=== PATIENT | female | born 1970 | race Caucasian/White ===

== ENCOUNTER → 2017-09-06 | Outpatient (CLI) | payer BC ==
[2017-09-06 15:15] VITALS: BP 157/81; PULSE 101; RESP 15; TEMP 97.9; BMI 37.3
--- NOTE | 2017-09-06 15:21 | P.HPBAR ---
Bariatric H&P - History & Physicial H&P Date: 09/06/17 History & Physicial: Visit/CC: band adjustment/dysphagia with solids and now liquids Patient initial contact: Initial weight: 94.971 kg Initial weight in pounds: 209.38 Height: 5 ft 4.25 in Initial BMI: 35.6 Last weight: Current weight: 99.337 kg Current weight in pounds: 219.00 Current BMI: 37.3 [place] body weight (based on NIH guidelines): 54.998 kg Excess body weight loss: The patient is a 46 year-old F who presents for Bariatric Assessment. Patient presents today for lab band follow up. She has some complaints of some mild dysphagia. She's not been seen in several years. Past Medical History Past Medical History: GERD/Reflux Additional Past Medical History / Comment(s): type 2 DM prior to lap band. History of Any Multi-Drug Resistant Organisms: None Reported Past Surgical History: Bariatric Surgery, Cholecystectomy, Tubal Ligation, Uterine Ablation Additional Past Surgical History / Comment(s): Lap band 2005, repair of LB prolapse 2010 Past Anesthesia/Blood Transfusion Reactions: No Reported Reaction, Motion Sickness Additional Past Anesthesia/Blood Transfusion Reaction / Comm: No tranfusion to date. "Horrific" motion sickness Past Psychological History: No Psychological Hx Reported Smoking Status: Former smoker Past Alcohol Use History: Rare Additional Past Alcohol Use History / Comment(s): On and Off for 25 years, Quit 2013 Past Drug Use History: None Reported - Past Family History Father Additional Family Medical History / Comment(s): congenital heart problems, pacemaker Mother Family Medical History: Cancer Additional Family Medical History / Comment(s): psych issues, cervical cancer Surgical - Exam Vital Signs Temp Pulse Resp BP 97.9 F 101 H 15 157/81 09/06/17 14:44 09/06/17 14:44 09/06/17 14:44 09/06/17 14:44 - General well developed, no distress - Eyes PERRL - Abdomen Abdomen: soft, non tender Bariatric Assessment & Plan Plan: the patient's lap band was adjusted. 2 mL was removed from her band. She currently has 0 mL in the band. She'll follow-up in 4 weeks. Bariatric Checklist Checklist: Plan: Checklist: EGD: 1. Hiatal hernia: 2. H. Pylori: HgbA1c: Vitamin D: Smoking: Former smoker Primary care physician referral: Psychiatry clearance: Cardiology clearance: Sleep study: Diet journal: VTE risk score: VTE risk level: Rehab needs at discharge:
--- NOTE | 2017-09-06 15:53 | P.PN ---
Progress Note - Text Progress Note Date: 09/06/17 The patient had an esophagram performed. There is evidence of rotation of her LAP-BAND suggestive of a prolapse. Dilantin discussion patient regarding gastric prolapse. The patient states that she's been dissatisfied with her band and is considering conversion sleeve gastrectomy. I went over the risks and benefits of procedure. The patient will be scheduled for EGD.
--- NOTE | 2017-09-06 16:37 | FL ---
SINGLE CONTRAST ESOPHAGRAM: CLINICAL HISTORY: 46-year-old female with intermittent dysphagia for a week. Unable to eat. Patient h ad fluid removed in the office today. TECHNIQUE: Single contrast exam performed with thin barium. Total fluoroscopy time: 1 minute 31 seconds. Total images: 29. COMPARISON: 07/01/2010 FINDINGS: The patient's maintenance coordinator image shows circular appearance of the lap band which is different as compared to 07/01/2010. The patient swallowed oral contrast without difficulty or delay. There is only mild hesitancy in passage of contrast across the lap band. Contrast collects in the bod y of the stomach and due to the tortuous course of the stomach, there is a second delay in passage in to the distal stomach and proximal small bowel. Esophageal peristalsis and motility are within normal limits. IMPRESSION: 1. Unusual orientation of the lap band. It is seen as a [place] on the maintenance coordinator image. This is a change a s compared to the patient's postoperative 07/01/2010 appearance. Correlate for the possibility of slip page of the lap band. 2. After emptying the fluid, there is only minimal hesitancy first at the GE junction and then at the level of the mid stomach due to tortuous course of the stomach. No obstruction is seen.
== END | disposition home or self-care (01) ==
LOC: BARWHC3 14:26
PROVIDERS: ATTEND Surgery
DX: Z48.815 Encounter for surgical aftercare following surgery on the digestive system (principal); Z98.84 Bariatric surgery status; Z87.891 Personal history of nicotine dependence
CPT/HCPCS: 74220; 99213

== ENCOUNTER 2017-09-08 08:45 | Day surgery (SDC) | payer BC ==
[2017-09-07 13:17] VITALS: BMI 37.8
[~2017-09-08 08:45] MED LIST: LACTATED RINGERS 1,000 ML IV SCH; LIDOCAINE 1% 20 ML VIAL (10MG/ML) FOR IV START INTRADERMA PRN
[2017-09-08 09:54] VITALS: TEMP 98
[2017-09-08] MEDS ORDERED: PROPOFOL 10 MG/ML 20 ML VIAL IV ONE (10:16)
--- NOTE | 2017-09-08 10:17 | P.GSHP ---
History of Present Illness H&P Date: 09/08/17 Chief Complaint: GERD, dysphagia This is a 46-year-old female who has history of LAP-BAND surgery. Patient presents today for EGD. Her recent esophagram shows gastric prolapse with a 180 rotation of her band. Past Medical History Past Medical History: Diabetes Mellitus, GERD/Reflux Additional Past Medical History / Comment(s): type 2 DM-no longer takes meds for , recent worsening dysphagia History of Any Multi-Drug Resistant Organisms: None Reported Past Surgical History: Bariatric Surgery, Cholecystectomy, Tubal Ligation, Uterine Ablation Additional Past Surgical History / Comment(s): Lap band 2005, repair of LB prolapse 2010 Past Anesthesia/Blood Transfusion Reactions: No Reported Reaction, Motion Sickness Additional Past Anesthesia/Blood Transfusion Reaction / Comment(s): No tranfusion to date, father gets severe PONV, pt. gets. "Horrific" motion sickness Smoking Status: Former smoker - Past Family History Father Additional Family Medical History / Comment(s): congenital heart problems, pacemaker Mother Family Medical History: Cancer Additional Family Medical History / Comment(s): psych issues, cervical cancer Medications and Allergies Home Medications Medication Instructions Recorded Confirmed Type Loratadine [Claritin] 10 mg PO DAILY PRN 02/28/14 09/08/17 History Pseudoephedrine HCl [Sudafed] 30 mg PO Q4HR PRN 02/28/14 09/08/17 History busPIRone HCl [Buspar] 20 mg PO HS 02/28/14 09/08/17 History Multivitamins, Thera [Multivitamin] 1 each PO DAILY 05/30/14 09/08/17 History Rizatriptan Benzoate [Maxalt UNDERLINER] 10 mg PO Q6H PRN 09/06/17 09/08/17 History Mometasone Furoate [Nasonex Nasal 1 - 2 spray EA NOSTRIL DAILY 09/08/17 History [place]] Allergies Allergy/AdvReac Type Severity Reaction Status Date / Time environmental Allergy Unknown Uncoded 09/08/17 09:59 Surgical - Exam Vital Signs Temp Pulse Resp BP Pulse Ox 98.0 F 78 16 120/72 98 09/08/17 09:52 09/08/17 09:52 09/08/17 09:52 09/08/17 09:52 09/08/17 09:52 - General well developed, no distress - Eyes PERRL - ENT normal pinna - Neck no masses - Respiratory normal expansion - Cardiovascular Rhythm: regular - Abdomen Abdomen: soft, non tender Assessment and Plan Assessment: GERD, dysphagia, gastric prolapse. Patient will undergo EGD.
--- NOTE | 2017-09-08 10:23 | P.OP ---
Date of Procedure: 09/08/17 Preoperative Diagnosis: GERD Dysphagia Postoperative Diagnosis: Antral gastritis Gastric prolapse of LAP-BAND device Procedure(s) Performed: EGD Anesthesia: MAC Surgeon: Mina Killian Pathology: other (Antrum) Condition: stable Disposition: PACU Description of Procedure: The patient's placed on the endoscopy table lateral position. She received IV sedation. The gastric O placed oropharynx past esophagus and stomach. Scope was then placed through the pylorus. The first and second portion of the duodenum appeared normal. Scope was then brought back the antrum this. Mildly inflamed. A biopsies performed. The scope was then retroflexed and the remainder of the stomach appeared normal. The patient had a LAP-BAND device it appeared to be displaced in position. The proximal gastric pouch was large. The GE junction was at 40 cm. The distal esophagus appeared mildly inflamed. The proximal esophagus. Normal. Scope was withdrawn for patient.
[2017-09-08 10:59] VITALS: RESP 20
[2017-09-08 11:28] VITALS: BP 106/56; PULSE 80
== END 2017-09-08 11:45 | disposition home or self-care (01) ==
LOC: ORWHC2ENDO 08:45
PROVIDERS: ATTEND Surgery
DX: K29.50 Unspecified chronic gastritis without bleeding (principal); K21.9 Gastro-esophageal reflux disease without esophagitis; E11.9 Type 2 diabetes mellitus without complications; T85.528A Displacement of other gastrointestinal prosthetic devices, implants and grafts, initial encounter; Z87.891 Personal history of nicotine dependence; Z98.84 Bariatric surgery status; F39 Unspecified mood [affective] disorder; Z79.899 Other long term (current) drug therapy; Z79.51 Long term (current) use of inhaled steroids
CPT/HCPCS: 81025; 88305; 43239; J2704

== ENCOUNTER → 2017-09-14 | Outpatient (CLI) | payer BC ==
--- NOTE | 2017-09-14 10:50 | P.HPBAR ---
Bariatric H&P - History & Physicial H&P Date: 09/14/17 History & Physicial: Visit/CC: Patient initial contact: Initial weight: 94.971 kg Initial weight in pounds: Height: Initial BMI: Last weight: Current weight: Current weight in pounds: Current BMI: [place] body weight (based on NIH guidelines): Excess body weight loss: The patient is a 46 year-old F who presents for Bariatric Assessment. Patient presents for presurgical consultation for gastric sleeve. She is totally scheduled for sleeve conversion . Patient has a prolapse of her LAP- BAND. Patient is morbidly obese BMI greater than 35.. Past Medical History Past Medical History: Diabetes Mellitus, GERD/Reflux Additional Past Medical History / Comment(s): type 2 DM-no longer takes meds for , recent worsening dysphagia History of Any Multi-Drug Resistant Organisms: None Reported Past Surgical History: Bariatric Surgery, Cholecystectomy, Tubal Ligation, Uterine Ablation Additional Past Surgical History / Comment(s): Lap band 2005, repair of LB prolapse 2010 Past Anesthesia/Blood Transfusion Reactions: No Reported Reaction, Motion Sickness Additional Past Anesthesia/Blood Transfusion Reaction / Comm: No tranfusion to date, father gets severe PONV, pt. gets. "Horrific" motion sickness Smoking Status: Former smoker - Past Family History Father Additional Family Medical History / Comment(s): congenital heart problems, pacemaker Mother Family Medical History: Cancer Additional Family Medical History / Comment(s): psych issues, cervical cancer Surgical - Exam - General well developed, no distress - Eyes PERRL - ENT normal pinna - Neck no masses - Respiratory normal expansion - Cardiovascular Rhythm: regular - Abdomen Abdomen: soft, non tender Bariatric Assessment & Plan Plan: Gastrics prolapse of LAP-BAND. Morbid obesity Patient will be scheduled for laparoscopic sleeve gastrectomy and removal of LAP -BAND. We went over the risks of surgery including possible conversion to the open procedure into stomach liver spleen as well as issues of gastric staple line such as bleeding, perforation obstruction. Bariatric Checklist Checklist: Plan: Checklist: EGD: 1. Hiatal hernia: 2. H. Pylori: HgbA1c: Vitamin D: Smoking: Former smoker Primary care physician referral: Psychiatry clearance: Cardiology clearance: Sleep study: Diet journal: VTE risk score: VTE risk level: Rehab needs at discharge:
[2017-09-14 11:26] LABS: Basophils % (A) 0 %; Eosinophils # (A) 0.1 k/uL (0-0.7); Eosinophils % (A) 1 %; HCT 46.9 % (34.0-46.0); HGB 15.5 gm/dL (11.4-16.0); Lymphocytes % (A) 24 %; MCH 28.6 pg (25.0-35.0); MCV 86.5 fL (80.0-100.0); Mean Platelet Volume 7.4; Monocytes # (A) 0.5 k/uL (0-1.0); Monocytes % (A) 6 %; Neutrophils # (A) 5.7 k/uL (1.3-7.7); Neutrophils % (A) 67 %; Platelet Count 336 k/uL (150-450); RBC 5.42 m/uL (3.80-5.40); RDW 13.8 % (11.5-15.5); WBC 8.4 k/uL (3.8-10.6)
[2017-09-14 11:41] LABS: ALT 29 U/L (9-52); AST 26 U/L (14-36); Albumin 4.7 g/dL (3.5-5.0); Alkaline Phosphatase 89 U/L (38-126); Anion Gap 12 mmol/L; Blood Urea Nitrogen 15 mg/dL (7-17); Calcium 9.9 mg/dL (8.4-10.2); Carbon Dioxide 27 mmol/L (22-30); Chloride 103 mmol/L (98-107); Glucose 88 mg/dL (74-99); Potassium 4.9 mmol/L (3.5-5.1); Sodium 142 mmol/L (137-145); Total Bilirubin 0.4 mg/dL (0.2-1.3); Total Protein 7.9 g/dL (6.3-8.2)
[2017-09-14 13:55] VITALS: BP 107/79; PULSE 76; TEMP 97.8; BMI 37.0
== END | disposition home or self-care (01) ==
LOC: BARWHC3 09:13
PROVIDERS: ATTEND Surgery
DX: Z48.815 Encounter for surgical aftercare following surgery on the digestive system (principal); E66.01 Morbid (severe) obesity due to excess calories; E11.9 Type 2 diabetes mellitus without complications; K21.9 Gastro-esophageal reflux disease without esophagitis; Z68.35 Body mass index [BMI] 35.0-35.9, adult; Z87.891 Personal history of nicotine dependence; Z98.84 Bariatric surgery status; Z01.812 Encounter for preprocedural laboratory examination; Z01.818 Encounter for other preprocedural examination
CPT/HCPCS: 36415; 80053; 85025; 93005; 99211

== ENCOUNTER 2017-09-16 08:43 | Inpatient (IN) | payer BC ==
[~2017-09-16 08:43] MED LIST changes: +HYDROmorphone 0.5 MG/0.5 ML SYRINGE IVP PRN; -LACTATED RINGERS 1,000 ML IV SCH; -LIDOCAINE 1% 20 ML VIAL (10MG/ML) FOR IV START INTRADERMA PRN; +ONDANSETRON 4 MG/2 ML VIAL IVP PRN; +ceFAZolin IN SWFI 2 GM/20 ML SYRINGE IVP ONE; +fentaNYL (PF) 50 MCG/ML 2 ML AMP IV PRN
[2017-09-16] MEDS: LACTATED RINGERS 1,000 ML IV SCH ×3 (09:37→19:16)
[2017-09-16] MEDS ORDERED: LIDOCAINE 1% 20 ML VIAL (10MG/ML) FOR IV START INTRADERMA ONE (09:38)
[2017-09-16] MEDS ORDERED: SCOPOLAMINE 1.5MG/72HR PATCH TRANSDERM ONE (09:48)
[2017-09-16] MEDS ORDERED: HEPARIN SODIUM,PORCINE 5,000 UNIT/ML 1 ML VIAL SQ ONE (10:06)
[2017-09-16] MEDS: FAMOTIDINE 20 MG/2 ML VIAL IV SCH ×2 (10:06→15:06)
--- NOTE | 2017-09-16 10:11 | P.GSHP ---
History of Present Illness H&P Date: 09/16/17 Chief Complaint: Gastric prolapse, morbid obesity 's is a 46-year-old female who has previous history of LAP-BAND surgery. Patient presents today for removal LAP-BAND conversion sleeve gastrectomy. Patient developed dysphagia related to gastric prolapse. Past Medical History Past Medical History: Diabetes Mellitus, GERD/Reflux Additional Past Medical History / Comment(s): type 2 DM-no longer takes meds for , recent worsening dysphagia History of Any Multi-Drug Resistant Organisms: None Reported Past Surgical History: Bariatric Surgery, Cholecystectomy, Tubal Ligation, Uterine Ablation Additional Past Surgical History / Comment(s): Lap band 2005, repair of LB prolapse 2010 Past Anesthesia/Blood Transfusion Reactions: No Reported Reaction, Motion Sickness Additional Past Anesthesia/Blood Transfusion Reaction / Comment(s): No tranfusion to date, father gets severe PONV, pt. gets. "Horrific" motion sickness Past Psychological History: No Psychological Hx Reported Smoking Status: Former smoker Past Alcohol Use History: Rare Additional Past Alcohol Use History / Comment(s): On and Off for 25 years, Quit 2013 Past Drug Use History: None Reported - Past Family History Father Additional Family Medical History / Comment(s): congenital heart problems, pacemaker Mother Family Medical History: Cancer Additional Family Medical History / Comment(s): psych issues, cervical cancer Medications and Allergies Home Medications Medication Instructions Recorded Confirmed Type Loratadine [Claritin] 10 mg PO DAILY PRN 02/28/14 09/16/17 History Pseudoephedrine HCl [Sudafed] 30 mg PO Q4HR PRN 02/28/14 09/16/17 History busPIRone HCl [Buspar] 20 mg PO HS 02/28/14 09/16/17 History Multivitamins, Thera [Multivitamin] 1 each PO DAILY 05/30/14 09/16/17 History Rizatriptan Benzoate [Maxalt CLINICAL SALES CONSULTANT] 10 mg PO Q6H PRN 09/06/17 09/16/17 History Mometasone Furoate [Nasonex Nasal 1 - 2 spray EA NOSTRIL DAILY 09/08/17 History [place]] Gabapentin [Neurontin] 300 mg PO HS 09/14/17 09/16/17 History Allergies Allergy/AdvReac Type Severity Reaction Status Date / Time environmental Allergy Unknown Uncoded 09/16/17 09:27 Surgical - Exam Vital Signs Temp Pulse Resp BP Pulse Ox 992 F H 85 18 106/65 96 09/16/17 09:33 09/16/17 09:33 09/16/17 09:33 09/16/17 09:33 09/16/17 09:33 - General well developed, no distress - Eyes PERRL - ENT normal pinna - Neck no masses - Respiratory normal expansion - Cardiovascular Rhythm: regular - Abdomen Abdomen: soft, non tender Assessment and Plan Assessment: Gastric prolapse Morbid obesity BMI 37. We'll perform removal of LAP-BAND and conversion sleeve gastrectomy. Patient aware the risks of surgery including conversion open procedure and injury to the stomach liver spleen vagotomy dysphagia recurrent GERD symptoms area she is also aware the risk of gastric staple line disruption, bleeding or scarring.
[2017-09-16] MEDS ORDERED: SUCCINYLCHOLINE CHLORIDE 100 MG/5 ML SYR IV ONE (10:26)
[2017-09-16] MEDS ORDERED: MIDAZOLAM 2 MG/2 ML VIAL ONE (10:26)
[2017-09-16] MEDS ORDERED: fentaNYL (PF) 50 MCG/ML 2 ML AMP ONE (10:26)
[2017-09-16] MEDS ORDERED: LIDOCAINE 1% INJ 10MG/ML (20 ML MDV) ONE (10:26)
[2017-09-16] MEDS ORDERED: ROCURONIUM BROMIDE 10 MG/ML 10 ML VIAL IV ONE (10:26)
[2017-09-16] MEDS ORDERED: GLYCOPYRROLATE 0.2 MG/ML 2 ML VIAL ONE (10:26)
[2017-09-16] MEDS ORDERED: METHYLENE BLUE 10 MG/ML (10 ML VIAL) ONE (10:26)
[2017-09-16] MEDS ORDERED: NEOSTIGMINE 1 MG/ML 10 ML VIAL ONE (10:26)
[2017-09-16] MEDS ORDERED: PROPOFOL 10 MG/ML 20 ML VIAL IV ONE (10:26)
[2017-09-16] MEDS ORDERED: BUPIVACAINE (PF) 0.5% 30 ML VIAL SQ ONE (10:54)
[2017-09-16] MEDS ORDERED: LACTATED RINGERS 1,000 ML IV ONE (11:18)
[2017-09-16] MEDS ORDERED: NALOXONE 0.4 MG/ML 1 ML VIAL IV PRN (12:07)
[2017-09-16] MEDS ORDERED: HYDROcodone/APAP 15 ML SOLUTION PO PRN (12:07)
--- NOTE | 2017-09-16 12:14 | P.OP ---
Date of Procedure: 09/16/17 Preoperative Diagnosis: Morbid obesity Gastric prolapse Postoperative Diagnosis: Morbid obesity BMI 37 Gastric prolapse Procedure(s) Performed: Laparoscopic removal LAP-BAND Laparoscopic sleeve gastrectomy Anesthesia: ALBINO Surgeon: Mina Killian Estimated Blood Loss (ml): 10 Pathology: other (Gastric remnant) Condition: stable Disposition: PACU Description of Procedure: MThe patient was placed on the operating room table in the supine position. She received general anesthesia and then was placed in dorsal lithotomy position. Her abdomen was prepped and draped in sterile fashion. The skin at the LAP-BAND port site was anesthetized 1% local Xylocaine. Then the skin was incised. Using blunt and sharp dissection with cautery the LAP-BAND port was dissected free from some taste tissues. The PEG tube was then cut and the LAP- BAND port was withdrawn. The skin incision sites were anesthetized 1% local Xylocaine. And then the skin was incised with an 11 blade in the left lateral position. Using a blade less trocar under direct visualization the peritoneal cavity was entered. The abdomen was insufflated and then a 5 mm laparoscope was placed into the peritoneal cavity. A 5 mm trocar was placed in the right epigastric, and right lateral position. A 15 mm trocar was placed in the supra-umbilical position and another 5 mm trocar was placed in the left lateral position. The left lateral lobe of the liver was retracted. The stomach was visualized. The greater curvature of the stomach was then dissected using the Harmonic scissors. The LAP-BAND device was visualized. The anterior gastric wall plication was taken down with sharp dissection. Care was taken to identify and preserve the gastric wall. The LAP-BAND device was then cut and withdrawn from the stomach and extracted through the 15 mm trocar. The greater curvature was fully mobilized by using the Harmonic scissors. The dissection occurred approximately 5 cm from the pylorus to the level of the left [place]. There was no hiatal hernia seen. At this point a 40-Hebrew bougie dilator was placed the oropharynx and passed into the esophagus and into the stomach by the DENTAL ASSISTANT. The sleeve gastrectomy was performed by using the powered echelon stapler with a seam guard buttress material. Sequential firings of the stapler were performed. The gastric remnant was then brought out through the 15 mm trocar site. The dilator was withdrawn. And a orogastric tube was replaced into the stomach. The stomach was insufflated with 200 mL of methylene blue normal saline. There was no evidence of extravasation. The abdomen was irrigated there is no bleeding seen. The Chandu-Jeniffer device was used to close the 15 mm trocar with 0 Vicryl. Skin was closed with interrupted 3-0 Monocryl sutures once the trochars withdrawn. Dermabond dressing was applied. Patient was sent to recovery in stable condition.
[2017-09-16] MEDS ORDERED: KETOROLAC 30 MG/ML 1 ML VIAL IVP ONE (12:27)
[2017-09-16] MEDS: HYDROmorphone 0.5 MG/0.5 ML SYRINGE IVP PRN ×2 (12:28→12:36)
[2017-09-16] MEDS ORDERED: diphenhydrAMINE 50 MG/ML 1 ML VIAL IVP ONE (12:45)
[2017-09-16] MEDS: 0.9% NACL WITH KCL 20 MEQ/L 1,000 ML IV SCH ×2 (14:00→20:58)
[2017-09-16 15:57] VITALS: BMI 37.0
[2017-09-16] MEDS: AMPICILLIN-SULBACTAM 3 GM in SODIUM CHLORIDE 0.9% 100 ML IVPB SCH ×2 (16:04→20:58)
[2017-09-16] MEDS: ALBUTEROL NEBULIZED 2.5 MG/3 ML INHALATION SCH ×2 (16:42→20:24)
[2017-09-16] MEDS: KETOROLAC 30 MG/ML 1 ML VIAL IVP SCH ×2 (18:18→23:45)
[2017-09-16] MEDS: HYOSCYAMINE ORAL DROPS 1.875 MG/15 ML BOTTLE PO PRN ×2 (18:45→23:46)
[2017-09-16] MEDS: SIMETHICONE 40 MG/0.6 ML DROPS 2,000 MG/30 ML BOTTLE PO PRN ×2 (18:45→23:46)
[2017-09-16] MEDS: ONDANSETRON 4 MG/2 ML VIAL IVP PRN (20:01)
[2017-09-17] MEDS: HYDROmorphone 0.5 MG/0.5 ML SYRINGE IVP PRN ×3 (01:40→21:12)
--- NOTE | 2017-09-17 03:59 | CONS ---
CONSULTATION DATE OF CONSULTATION: 09/16/17 REASON FOR CONSULTATION: Medical management requested by Dr. Killian. CONSULTATION: This is a pleasant 46 year old patient of Dr. Li who has undergone a sleeve gastrectomy. Post procedure patient started to get a burp and feeling like it was stuck in the chest. No nausea, vomiting. Chronic stable medical conditions include diet-controlled diabetes, GERD, insomnia, and urine incontinence. Some pain at the operative site. REVIEW OF SYSTEMS: CONSTITUTIONAL: None. HEENT none. Respiratory none. Cardiovascular none. Gastrointestinal as above. Genitourinary: Urine incontinence. Dermatological and hematologic, lymphatic none. Psychiatry none. Neurological none. PAST MEDICAL HISTORY: Diet-controlled diabetes, GERD, chronic insomnia, chronic urinary stress incontinence. PAST SURGICAL HISTORY: Bariatric surgery, cholecystectomy, tubal ligation, lap band in 2005, repair of lap band collapse 2010. SOCIAL HISTORY: Smoked on and off for 25 years. Stopped in 2013. Alcohol rarely. The patient works at the [employer] department in [facility], . FAMILY HISTORY: Of cancer, congenital heart problems. HOME MEDICATIONS: 1. BuSpar 20 mg q.h.s. 2. Maxalt 10 mg q.6h p.r.n. 3. Sudafed 30 mg q.4 p.r.n. 4. Multivitamin 1 tablet p.o. daily. 5. Claritin 10 mg daily p.r.n. 6. Neurontin 10 mg q.h.s. ALLERGIES: Environmental. PHYSICAL EXAMINATION: Temperature 98.1, pulse 109, respirations 16, blood pressure 108/77, pulse ox 93%. GENERAL APPEARANCE: Well built. BMI 37.1. Lying in bed, tired appearing. EYES: Pupils are equal. Conjunctivae normal. HEENT: External appearance of nose and ears normal. Oral cavity normal. NECK: JVD not raised. Mass not palpable. RESPIRATORY: Effort normal. LUNGS: Clear. CARDIOVASCULAR: 1st and second sounds normal. No Edema. ABDOMEN: Tender, soft. Liver and spleen not palpable. Bowel sounds are present. LYMPHATICS: No lymph nodes palpable in the neck or axilla. PSYCHIATRY: Alert and oriented x3. Mood and affect normal. NEUROLOGICAL: Pupils equal. Cranial nerves grossly intact. Power and sensation grossly intact. INVESTIGATIONS: No blood work from today. ASSESSMENT: 1. Status post sleeve gastrectomy. 2. Diet-controlled diabetes. 3. Gastroesophageal reflux disease, worsening. 4. Chronic insomnia idiopathic. 5. Chronic urinary stress incontinence. 6. Obesity BMI 37.1. PLAN: Patient's pain control is in place. Getting IV fluids. The patient's home medications to be resumed when okay with Dr. Killian. Care was discussed with the patient. Questions were answered. Thank you Dr. Killian. Copy to Dr. David. NIA / YEE: [id number] /
[2017-09-17] MEDS: SIMETHICONE 40 MG/0.6 ML DROPS 2,000 MG/30 ML BOTTLE PO PRN (05:35)
[2017-09-17] MEDS: HYOSCYAMINE ORAL DROPS 1.875 MG/15 ML BOTTLE PO PRN ×2 (05:35→12:47)
[2017-09-17] MEDS: 0.9% NACL WITH KCL 20 MEQ/L 1,000 ML IV SCH (05:50)
[2017-09-17] MEDS: LACTATED RINGERS 1,000 ML IV SCH ×3 (07:10→14:34)
[2017-09-17] MEDS: ONDANSETRON 4 MG/2 ML VIAL IVP PRN ×3 (07:26→23:22)
[2017-09-17] MEDS: KETOROLAC 30 MG/ML 1 ML VIAL IVP SCH ×4 (07:42→23:22)
[2017-09-17] MEDS: ALBUTEROL NEBULIZED 2.5 MG/3 ML INHALATION SCH ×4 (08:26→19:56)
[2017-09-17 08:28] LABS: Basophils % (A) 0 %; Eosinophils # (A) 0.1 k/uL (0-0.7); Eosinophils % (A) 1 %; HCT 37.9 % (34.0-46.0); Lymphocytes # (A) 1.1 k/uL (1.0-4.8); Lymphocytes % (A) 12 %; MCH 29.1 pg (25.0-35.0); MCV 88.3 fL (80.0-100.0); Mean Platelet Volume 7.2; Monocytes # (A) 0.5 k/uL (0-1.0); Monocytes % (A) 6 %; Neutrophils % (A) 79 %; Platelet Count 262 k/uL (150-450); RBC 4.29 m/uL (3.80-5.40); RDW 14.2 % (11.5-15.5); WBC 8.8 k/uL (3.8-10.6)
[2017-09-17 08:31] LABS: HGB 12.5 gm/dL (11.4-16.0)
[2017-09-17 08:46] LABS: Anion Gap 9 mmol/L; Blood Urea Nitrogen 15 mg/dL (7-17); Calcium 8.5 mg/dL (8.4-10.2); Carbon Dioxide 24 mmol/L (22-30); Chloride 107 mmol/L (98-107); Magnesium 1.8 mg/dL (1.6-2.3); Phosphorus 3.1 mg/dL (2.5-4.5); Potassium 4.7 mmol/L (3.5-5.1); Sodium 140 mmol/L (137-145)
[2017-09-17] MEDS: PANTOPRAZOLE 40 MG/10 ML VIAL IV SCH (09:01)
[2017-09-17] MEDS: ENOXAPARIN 40 MG/0.4 ML SYRINGE SQ SCH ×2 (09:01→20:09)
[2017-09-17] MEDS: FAMOTIDINE 20 MG/2 ML VIAL IV SCH (09:01)
--- NOTE | 2017-09-17 09:19 | FL ---
EXAMINATION TYPE: FL UGI DATE OF EXAM: 09/17/2017 COMPARISON: NONE HISTORY: Partial gastrectomy TECHNIQUE: A single contrast UGI study is performed. 1 minute and 59 seconds of fluoroscopy time was utilized with 18 images saved. 40 mL of Isovue-370 was used. FINDINGS: The proximal esophagus shows normal motility, however there is a marked delay at the gastroesophageal junction opacity of contrast into the gastric sleeve likely from postoperative edema. Eventual passa ge is demonstrated with no evidence of extravasation or to indicate postsurgical leak. IMPRESSION: There is a marked delay of extent of contrast through the gastroesophageal junction into the gastric sleeve likely relating to postoperative, however there is eventual passage of contrast wi th no evidence of extravasation.
--- NOTE | 2017-09-17 12:40 | P.PN ---
Subjective Progress Note Date: 09/17/17 46-year-old female seen this morning on rounds. Patient states she has been up ambulating in the hallway this morning. states that she is not able to swallow without vomiting. Patient states when she swallows it feels like it comes right back up. The upper GI report showed markedly delay of contrast through the esophageal junction into the gastric sleeve likely related to postoperative with no evidence of extravasation labs reviewed Heart rate in the 90s to 100 sats on room air 94% afebrile Patient is postop day 1 laparoscopic sleeve gastrectomy for morbid obesity with a lap band removal Objective - Vital Signs Vital signs: Vital Signs Temp 97.0 F L 09/17/17 06:50 Pulse 108 H 09/17/17 08:40 Resp 20 09/17/17 08:26 BP 100/67 09/17/17 06:50 Pulse Ox 94 L 09/17/17 08:26 Intake & Output 09/16/17 09/17/17 09/17/17 18:59 06:59 18:59 Intake Total 1475 1825 Output Total 205 Balance 1270 1825 Weight 98 kg 98 kg Intake: IV 1475 525 0.9% NaCl with KCl 20 Meq 75 525 /l 1,000 ml @ 150 mls/hr IV .Q6H40M [facility] Rx#: [id number] Intake, IV Titration 1300 Amount 0.9% NaCl with KCl 20 Meq 1200 /l 1,000 ml @ 150 mls/hr IV .Q6H40M [facility] Rx#: [id number] Ampicillin-Sulbactam 3 gm 100 In Sodium Chloride 0.9% 100 ml @ 100 mls/hr IVPB Q6H [facility] Rx#:[id number] Output: Urine 200 Estimated Blood Loss 5 Other: Voiding Method Toilet # Voids 2 - Exam Physical exam 46 rolled female sitting up in bed reports a nausea sensation continues to report if she swallows liquid it comes right back up can't keep it down with difficulty in swallowing pleasant oriented 3 states does not feel ready to go home today Lungs adequate air movement bilaterally on room air no cough noted Heart S1-S2 audible and regular heart rate in the 90s to 100s denying chest pain Abdomen obese soft surgical dressing site dressings dry. Hypoactive bowel tones reports a nausea sensation difficult to swallow liquids per patient report states urinating no difficulty Extremities no edema noted - Labs CBC & Chem 7: 06/01/18 07:35 09/17/17 07:35 Assessment and Plan Assessment: Impression Morbid obesity with the prior LAP-BAND surgery Dysphagia related to gastric prolapse Removal of the LAP-BAND conversion sleeve gastrectomy done on September 16 Recurrent esophageal reflux symptoms Morbid obesity BMI 37 Postop upper GI shows no evidence of extravasation Plan Continue postop bariatric care IV fluid for hydration Pain control Increase activity Further surgical recommendations pending DVT and GI prophylaxis The above impression and plan of care have been discussed and directed by signing physician. Savannah Cabral nurse practitioner acting as scribe for signing physician.
--- NOTE | 2017-09-17 22:10 | PN ---
PROGRESS NOTE DATE OF SERVICE: 09/17/2017 PRESENTING COMPLAINT: Abdominal pain. INTERVAL HISTORY: This patient is status post sleeve gastrectomy, having some abdominal pain earlier today, having trouble getting some fluids down, though the patient's fluoroscopy showed the fluid to pass through. Has been out of bed. is present at bedside. REVIEW OF SYSTEMS: Done for constitutional, cardiovascular, GI, pulmonary; relevant findings as above. CURRENT MEDICATIONS: Reviewed. EXAMINATION: Temperature 97, pulse 106, respirations 16, blood pressure 100/67, pulse ox 96% on 2L. GENERAL APPEARANCE: Lying in bed, tired-appearing. EYES: Pupils equal. Conjunctivae normal. HEENT: External appearance of nose and ears normal. Oral cavity normal. NECK: JVD not raised. Mass not palpable. RESPIRATORY: Effort normal. Lungs are clear. CARDIOVASCULAR: First and second sounds normal. No edema. ABDOMEN: Tender, soft. Bowel sounds sluggish. PSYCHIATRY: Alert and oriented x3. Mood and affect were normal. INVESTIGATIONS: White count 8.8, hemoglobin 12.5. ASSESSMENT: 1. Status post sleeve gastrectomy. 2. Diet-controlled diabetes mellitus type 2. 3. Gastroesophageal reflux disease, uncontrolled. 4. Chronic insomnia, idiopathic. 5. Chronic urinary stress incontinence. 6. Obesity BMI 37.1. PLAN: Care was discussed with the patient's . Encouraged to ambulate. The patient's upper GI series were noted. Contrast does pass through. Follow with Dr. Killian. MMBRENDAL / NILAN: [id number] /
[2017-09-18] MEDS: KETOROLAC 30 MG/ML 1 ML VIAL IVP SCH ×2 (05:19→12:59)
[2017-09-18] MEDS: ALBUTEROL NEBULIZED 2.5 MG/3 ML INHALATION SCH ×4 (08:06→19:47)
--- NOTE | 2017-09-18 08:48 | P.PN ---
Subjective Progress Note Date: 09/18/17 The patient is status post laparoscopic band removal including sleeve gastrectomy. She is tolerating liquids. Pain is controlled. No passage of flatus. She is ambulating. She has showered. Objective - Vital Signs Vital signs: Vital Signs Temp 98.0 F 09/18/17 02:48 Pulse 76 09/18/17 08:19 Resp 16 09/18/17 02:48 BP 104/64 09/18/17 02:48 Pulse Ox 96 09/18/17 02:48 Intake & Output 09/17/17 09/18/17 09/18/17 18:59 06:59 18:59 Intake Total 3411.2 Balance 3411.2 Weight 98 kg Intake: IV 1200 0.9% NaCl with KCl 20 Meq 1200 /l 1,000 ml @ 150 mls/hr IV .Q6H40M [facility] Rx#: [id number] Intake, IV Titration 2211.2 Amount 0.9% NaCl with KCl 20 Meq 1200 /l 1,000 ml @ 150 mls/hr IV .Q6H40M [facility] Rx#: [id number] Mvi, Adult No.4 with Vit 1011.2 K 10 ml Thiamine 100 mg Folic Acid 1 mg In 0.9% NaCl with KCl 20 Meq/l 1, 000 ml @ 100 mls/hr IV . BY DURATION [facility] Rx#: [id number] Other: Voiding Method Toilet # Voids 1 3 - Exam GENERAL: Well developed and in no acute distress. Pleasant. HEENT: No sclera icterus. Extraocular movements grossly intact. Moist buccal mucosa. Head is atraumatic, normocephalic. Hears conversational speech. No nasal drainage. NECK: Supple without lymphadenopathy. No JV distention. CHEST: Non-labored respirations and equal bilateral excursions. CARDIOVASCULAR: Regular rate and rhythm. Palpable 2+ radial pulses. ABDOMEN: Soft, nontender. Nondistended. Incisions clean dry and intact. No cellulitis. MUSCULOSKELETAL: No clubbing, cyanosis or edema. NEUROLOGIC: No focal or lateralizing signs. PSYCH: Appropriate affect. Alert and oriented to person, place and time. SKIN: Good skin turgor. Well perfused. - Labs CBC & Chem 7: 09/17/17 07:35 09/17/17 07:35 Assessment and Plan (1) Morbid obesity Current Visit: No Status: Acute Code(s): E66.01 - MORBID (SEVERE) OBESITY DUE TO EXCESS CALORIES SNOMED Code(s): 008287039 Plan: 1. Patient is doing well. 2. Bariatric discharge instructions reviewed. 3. Patient is clear for discharge.
[2017-09-18] MEDS ORDERED: ONDANSETRON ODT 4 MG TAB PO STA (09:02)
[2017-09-18] MEDS: PANTOPRAZOLE 40 MG/10 ML VIAL IV SCH (09:17)
[2017-09-18] MEDS: ENOXAPARIN 40 MG/0.4 ML SYRINGE SQ SCH ×2 (09:17→21:15)
--- NOTE | 2017-09-18 12:32 | P.PN ---
Progress Note - Text Progress Note Date: 09/18/17 Notified by nursing patient is now not tolerating liquids despite lengthy discussion this morning. Discharge now held.
[2017-09-18] MEDS: HYOSCYAMINE ORAL DROPS 1.875 MG/15 ML BOTTLE PO PRN (14:39)
[2017-09-18] MEDS: SIMETHICONE 40 MG/0.6 ML DROPS 2,000 MG/30 ML BOTTLE PO PRN (14:43)
[2017-09-18 16:06] VITALS: RESP 16
[2017-09-18] MEDS: HYDROmorphone 0.5 MG/0.5 ML SYRINGE IVP PRN (18:04)
[2017-09-18] MEDS ORDERED: diphenhydrAMINE 50 MG/ML 1 ML VIAL IVP PRN (18:28)
[2017-09-19] MEDS: HYDROmorphone 0.5 MG/0.5 ML SYRINGE IVP PRN ×2 (00:03→05:53)
[2017-09-19] MEDS: ONDANSETRON 4 MG/2 ML VIAL IVP PRN (05:52)
[2017-09-19 07:07] VITALS: BP 104/67; TEMP 99.5
[2017-09-19] MEDS: ALBUTEROL NEBULIZED 2.5 MG/3 ML INHALATION SCH ×2 (07:37→11:39)
[2017-09-19] MEDS: PANTOPRAZOLE 40 MG/10 ML VIAL IV SCH (09:58)
[2017-09-19] MEDS: ENOXAPARIN 40 MG/0.4 ML SYRINGE SQ SCH (10:02)
[2017-09-19 11:43] VITALS: PULSE 84
--- NOTE | 2017-09-19 12:32 | P.PN ---
Subjective Progress Note Date: 09/19/17 The patient is status post laparoscopic band removal including sleeve gastrectomy. Yesterday, she developed increased dysphagia which is now completely resolved. Her is at bedside. She had received Benadryl which helped her with her anxiety. Objective - Vital Signs Vital signs: Vital Signs Temp 99.5 F 09/19/17 07:00 Pulse 84 09/19/17 11:50 Resp 16 09/19/17 07:00 BP 104/67 09/19/17 07:00 Pulse Ox 95 09/19/17 07:00 Intake & Output 09/18/17 09/19/17 09/19/17 18:59 06:59 18:59 Intake Total 1441.2 1770 Balance 1441.2 1770 Weight 98 kg Intake: IV 400 650 0.9% NaCl with KCl 20 Meq 400 650 /l 1,000 ml @ 100 mls/hr IV .BY DURATION [facility] Rx#: [id number] Intake, IV Titration 1011.2 1000 Amount 0.9% NaCl with KCl 20 Meq 1000 /l 1,000 ml @ 100 mls/hr IV .BY DURATION [facility] Rx#: [id number] Mvi, Adult No.4 with Vit 1011.2 K 10 ml Thiamine 100 mg Folic Acid 1 mg In 0.9% NaCl with KCl 20 Meq/l 1, 000 ml @ 100 mls/hr IV . BY DURATION [facility] Rx#: [id number] Oral 30 120 Other: Voiding Method Toilet # Voids 2 - Exam GENERAL: Well developed and in no acute distress. Pleasant. HEENT: No sclera icterus. Extraocular movements grossly intact. Moist buccal mucosa. Head is atraumatic, normocephalic. Hears conversational speech. No nasal drainage. NECK: Supple without lymphadenopathy. No JV distention. CHEST: Non-labored respirations and equal bilateral excursions. CARDIOVASCULAR: Regular rate and rhythm. Palpable 2+ radial pulses. ABDOMEN: Soft, nontender. Nondistended. Incisions clean dry and intact. No cellulitis. MUSCULOSKELETAL: No clubbing, cyanosis or edema. NEUROLOGIC: No focal or lateralizing signs. PSYCH: Appropriate affect. Alert and oriented to person, place and time. SKIN: Good skin turgor. Well perfused. - Labs CBC & Chem 7: 09/17/17 07:35 06/01/18 07:35 Assessment and Plan (1) Morbid obesity Current Visit: No Status: Acute Code(s): E66.01 - MORBID (SEVERE) OBESITY DUE TO EXCESS CALORIES SNOMED Code(s): 686500884 (2) S/P laparoscopic sleeve gastrectomy Current Visit: Yes Status: Acute Code(s): Z98.84 - BARIATRIC SURGERY STATUS SNOMED Code(s): 563880474 (3) Dysphagia Current Visit: No Status: Acute Code(s): R13.10 - DYSPHAGIA, UNSPECIFIED SNOMED Code(s): 37314662 Plan: 1. Her dysphasia is resolved. 2. Reassurance including discharge instructions reviewed. 3. Discharge home.
--- NOTE | 2017-09-19 15:31 | PN ---
PROGRESS NOTE DATE OF SERVICE: 09/18/17. PRESENTING COMPLAINT: Abdominal pain. INTERVAL HISTORY: The patient is status post sleeve gastrectomy. Seen by me yesterday. Sitting out of bed. Pain somewhat better. Some trouble swallowing. Has been out of bed. at the bedside. REVIEW OF SYSTEMS: Done for constitutional, cardiovascular, GI, pulmonary; relevant findings as above. CURRENT MEDICATIONS: Reviewed. EXAMINATION: Temperature 98, pulse 107, respiratory 20, blood pressure 101/66, pulse ox 97% on room air. GENERAL APPEARANCE: Sitting on bed, more comfortable. EYES: Pupils equal. Conjunctivae normal. HEENT: External appearance of nose and ears normal. Oral cavity normal. NECK: JVD not raised. Mass not palpable. RESPIRATORY: Effort, lungs are clear. CARDIOVASCULAR: First and second sounds normal. No edema. ABDOMEN: Soft, some tenderness. No guarding or rigidity. PSYCHIATRY: Alert and oriented x3. Mood and affect normal. INVESTIGATIONS: No blood work from today. ASSESSMENT: 1. Status post sleeve gastrectomy. 2. Diet controlled diabetes mellitus type 2. 3. Gastroesophageal reflux disease, controlled. 4. Chronic insomnia idiopathic. 5. Chronic urinary stress incontinence. 6. Obesity, BMI 37.1. PLAN: Care was discussed with the patient. Encouraged to ambulate. Overall, she is doing better. MMODL / IJN: [id number] /
--- NOTE | 2017-09-19 15:46 | PN ---
PROGRESS NOTE DATE OF SERVICE: 09/19/17. PRESENTING COMPLAINT: Abdominal pain. INTERVAL HISTORY: Patient is status post sleeve gastrectomy. Discharge was held yesterday as patient was having trouble swallowing. Doing much better today. She is keen to go home. Has been out of bed. No nausea, vomiting. REVIEW OF SYSTEMS: Done for constitutional, cardiovascular, GI, pulmonary; relevant findings as above. CURRENT MEDICATIONS: Reviewed. EXAMINATION: Temperature 99.5, pulse 93, respirations 16, blood pressure 104/67, pulse ox 95% on room air. GENERAL APPEARANCE: Sitting up, more comfortable. EYES: Pupils equal. Conjunctivae normal. HEENT: External appearance of nose and ears normal. Oral cavity normal. NECK: JVD not raised. Mass not palpable. RESPIRATORY: Effort, lungs are clear. CARDIOVASCULAR: First and second sounds normal. No edema. ABDOMEN: Soft, minimal tenderness. Bowel sounds present. PSYCHIATRY: Alert and oriented x3. Mood and affect normal. INVESTIGATIONS: No blood work from today. ASSESSMENT: 1. Status post sleeve gastrectomy, feeling much better today. 2. Diet-controlled diabetes mellitus type 2. 3. Gastroesophageal reflux disease, uncontrolled. 4. Chronic insomnia idiopathic. 5. Chronic urinary stress incontinence. 6. Obesity; BMI 37.1. PLAN: Care was discussed with the patient. She will be going home today. She should follow with the family doctor. Thank you Dr. Killian. NIA / YEE: [id number] /
== END 2017-09-19 13:31 | disposition home or self-care (01) | DRG 328 ==
LOC: 2ORMAIN 08:43 → 3SUR 12:12
PROVIDERS: ADMIT Surgery; ATTEND Surgery
PROC: 0DB64Z3 Excision of Stomach, Percutaneous Endoscopic Approach, Vertical (ICD-10-PCS; principal; 2017-09-16 10:15)
PROC: 0DP64CZ Removal of Extraluminal Device from Stomach, Percutaneous Endoscopic Approach (ICD-10-PCS; principal; 2017-09-16 10:15)
DX: K95.09 Other complications of gastric band procedure (principal); E11.9 Type 2 diabetes mellitus without complications; E66.01 Morbid (severe) obesity due to excess calories; F41.9 Anxiety disorder, unspecified; F51.04 Psychophysiologic insomnia; K21.9 Gastro-esophageal reflux disease without esophagitis; N39.3 Stress incontinence (female) (male); R13.10 Dysphagia, unspecified; Z68.37 Body mass index [BMI] 37.0-37.9, adult; Z79.899 Other long term (current) drug therapy; Z80.49 Family history of malignant neoplasm of other genital organs; Z87.891 Personal history of nicotine dependence; Z90.49 Acquired absence of other specified parts of digestive tract
CPT/HCPCS: 74240; 80051; 81025; 82310; 82565; 83735; 84100; 84520; 85025; 88307; 94640; 94760; 94762

== ENCOUNTER → 2017-09-27 | Outpatient (CLI) | payer BC ==
[2017-09-27 13:37] VITALS: BMI 35.6
--- NOTE | 2017-09-27 15:19 | P.HPBAR ---
Bariatric H&P - History & Physicial H&P Date: 09/27/17 History & Physicial: Visit/CC: Patient initial contact: Initial weight: 94.971 kg Initial weight in pounds: Height: 5 ft 4.25 in Initial BMI: Last weight: Current weight: 94.846 kg Current weight in pounds: Current BMI: 35.6 [place] body weight (based on NIH guidelines): 55.338 kg Excess body weight loss: The patient is a 47 year-old F who presents for Bariatric Assessment. Patient presents today for sleeve gastrectomy fall. She's had some complaints of GERD and nausea. Past Medical History Past Medical History: Diabetes Mellitus, GERD/Reflux Additional Past Medical History / Comment(s): type 2 DM-no longer takes meds for , recent worsening dysphagia History of Any Multi-Drug Resistant Organisms: None Reported Past Surgical History: Bariatric Surgery, Cholecystectomy, Tubal Ligation, Uterine Ablation Additional Past Surgical History / Comment(s): Lap band 2005, repair of LB prolapse 2010, Gastric Sleeve 08/2017 Past Anesthesia/Blood Transfusion Reactions: No Reported Reaction, Motion Sickness Additional Past Anesthesia/Blood Transfusion Reaction / Comm: No tranfusion to date, father gets severe PONV, pt. gets. "Horrific" motion sickness Past Psychological History: No Psychological Hx Reported Smoking Status: Former smoker Past Alcohol Use History: Rare Additional Past Alcohol Use History / Comment(s): On and Off for 25 years, Quit 2013 Past Drug Use History: None Reported - Past Family History Father Additional Family Medical History / Comment(s): congenital heart problems, pacemaker Mother Family Medical History: Cancer Additional Family Medical History / Comment(s): psych issues, cervical cancer Surgical - Exam - General well developed, no distress - Eyes PERRL - ENT normal pinna - Abdomen Abdomen: soft Bariatric Assessment & Plan Plan: Patient is status post sleeve yesterday. She is doing quite well. The patient will be prescribed omeprazole for nausea and Zofran when necessary for nausea. She'll follow-up in 2 weeks. Bariatric Checklist Checklist: Plan: Checklist: EGD: 1. Hiatal hernia: 2. H. Pylori: HgbA1c: Vitamin D: Smoking: Former smoker Primary care physician referral: dyan Psychiatry clearance: Cardiology clearance: Sleep study: Diet journal: VTE risk score: VTE risk level: Rehab needs at discharge:
[2017-09-28 13:54] VITALS: BP 111/74; PULSE 89; RESP 15; TEMP 98.7
== END | disposition home or self-care (01) ==
LOC: BARWHC3 12:56
PROVIDERS: ATTEND Surgery
DX: E11.65 Type 2 diabetes mellitus with hyperglycemia (principal); Z98.84 Bariatric surgery status; Z68.35 Body mass index [BMI] 35.0-35.9, adult; K21.9 Gastro-esophageal reflux disease without esophagitis; R11.0 Nausea
CPT/HCPCS: 97803; 99211

== ENCOUNTER → 2017-10-25 | Outpatient (CLI) | payer BC ==
[2017-10-25 13:22] VITALS: BP 118/74; PULSE 90; RESP 16; TEMP 98.4; BMI 34.0
--- NOTE | 2017-10-25 15:32 | P.HPBAR ---
Bariatric H&P - History & Physicial H&P Date: 10/25/17 History & Physicial: Visit/CC: alexia Patient initial contact: Initial weight: 94.971 kg Initial weight in pounds: 209.38 Height: 5 ft 4.25 in Initial BMI: 35.6 Last weight: 209 Current weight: 90.718 kg Current weight in pounds: 200.00 Current BMI: 34.0 [place] body weight (based on NIH guidelines): 54.998 kg Excess body weight loss: 10.6% The patient is a 47 year-old F who presents for Bariatric Assessment. Patient presents today for sleeve gastrectomy follow-up. She's had some complaints of mild GERD. Past Medical History Past Medical History: Diabetes Mellitus, GERD/Reflux Additional Past Medical History / Comment(s): type 2 DM-no longer takes meds for , recent worsening dysphagia History of Any Multi-Drug Resistant Organisms: None Reported Past Surgical History: Bariatric Surgery, Cholecystectomy, Tubal Ligation, Uterine Ablation Additional Past Surgical History / Comment(s): Lap band 2005, repair of LB prolapse 2010, Gastric Sleeve 08/2017 Past Anesthesia/Blood Transfusion Reactions: No Reported Reaction, Motion Sickness Additional Past Anesthesia/Blood Transfusion Reaction / Comm: No tranfusion to date, father gets severe PONV, pt. gets. "Horrific" motion sickness Past Psychological History: No Psychological Hx Reported Smoking Status: Former smoker Past Alcohol Use History: Rare Additional Past Alcohol Use History / Comment(s): On and Off for 25 years, Quit 2013 Past Drug Use History: None Reported - Past Family History Father Additional Family Medical History / Comment(s): congenital heart problems, pacemaker Mother Family Medical History: Cancer Additional Family Medical History / Comment(s): psych issues, cervical cancer Surgical - Exam Vital Signs Temp Pulse Resp BP 98.4 F 90 16 118/74 10/25/17 13:18 10/25/17 13:18 10/25/17 13:18 10/25/17 13:18 - General well developed, no distress - Eyes PERRL - ENT normal pinna - Respiratory normal expansion - Cardiovascular Rhythm: regular - Abdomen Abdomen: soft, non tender Bariatric Assessment & Plan Plan: Status post sleeve gastrectomy. Patient is doing well from weight loss standpoint. Her GERD is minimal will be observed. Bariatric Checklist Checklist: Plan: Checklist: EGD: 1. Hiatal hernia: 2. H. Pylori: HgbA1c: Vitamin D: Smoking: Former smoker Primary care physician referral: [place] Psychiatry clearance: Cardiology clearance: Sleep study: Diet journal: VTE risk score: VTE risk level: Rehab needs at discharge:
== END | disposition home or self-care (01) ==
LOC: BARWHC3 12:42
PROVIDERS: ATTEND Surgery
DX: Z48.815 Encounter for surgical aftercare following surgery on the digestive system (principal); E66.01 Morbid (severe) obesity due to excess calories; K21.9 Gastro-esophageal reflux disease without esophagitis; Z98.84 Bariatric surgery status; Z87.891 Personal history of nicotine dependence; Z68.34 Body mass index [BMI] 34.0-34.9, adult
CPT/HCPCS: 97803; 99211